=== PATIENT | female | born 1965 | race Caucasian/White ===

== ENCOUNTER → 2020-12-18 | Outpatient (CLI) | payer OTHER ==
[~2020-12-18] MED LIST: ALDACTONE25 MG PO; ATORVASTATIN CA20 MG PO; BASAGLAR K100 UNIT/1 SQ; CEFUROXIME250 MG PO; CHRONULAC20 GM/30 M PO; CLINDAMYCIN HC150 MG PO; COZAAR25 MG PO; ECOTRIN81 MG PO; FUROSEMIDE20 MG PO; KEFLEX CAP 500500 MG PO; LEVAQUIN500 MG PO; LEVOFLOXACIN500 MG PO; LOPRESSOR 25 MG25 MG PO; LOVENOX120 MG/0.8 SQ; LOVENOX30 MG/0.3 SQ; METFORMIN HCL500 M2 PO; OMNICEF 300 MG300 MG PO; PERCOCET 5-3251 EACH PO; PERCOCET 5/325 T1 EA PO; SULFAMETHOXAZO1 EACH PO; TESSALON PERLE100 MG PO; XARELTO 10 MG T10 MG PO; XARELTO10 MG PO; XARELTO20 MG PO; ZESTRIL2.5 MG PO
== END ==
LOC: KOH-I 09:39
DX: M14.671 Charcot's joint, right ankle and foot (principal); M14.672 Charcot's joint, left ankle and foot; M19.072 Primary osteoarthritis, left ankle and foot; M19.071 Primary osteoarthritis, right ankle and foot
CPT/HCPCS: 73610; 73630

== ENCOUNTER → 2021-02-19 | Outpatient (CLI) | payer OTHER | LOC: KOH-I 15:36 | DX: A52.16 Charcot's arthropathy (tabetic) (principal); M79.671 Pain in right foot; M79.672 Pain in left foot; M25.775 Osteophyte, left foot; M25.774 Osteophyte, right foot | CPT/HCPCS: 73630 ==

== ENCOUNTER 2021-02-20 19:26 | Inpatient (IN) | payer OTHER ==
[~2021-02-20] VITALS: Ht 162.6 cm; Wt 127.9 kg
[~2021-02-20 19:26] MED LIST changes: -ALDACTONE25 MG PO; -CHRONULAC20 GM/30 M PO; -CLINDAMYCIN HC150 MG PO; -COZAAR25 MG PO; -LEVOFLOXACIN500 MG PO; -LOVENOX120 MG/0.8 SQ; -LOVENOX30 MG/0.3 SQ; -PERCOCET 5-3251 EACH PO; -PERCOCET 5/325 T1 EA PO; -SULFAMETHOXAZO1 EACH PO
[2021-02-21] MEDS ORDERED: COZAAR25 MG PO (12:10)
[2021-02-21] MEDS ORDERED: ALDACTONE25 MG PO (12:11)
[2021-02-21 16:24] LABS: HEMOGLOBIN 12.4 gm/dl (12.3-15.3); RED BLOOD COUNT 4.03 M/UL (4.00-5.10); WHITE BLOOD COUNT 10.2 K/UL (4.5-11.0)
[2021-02-22 03:55] LABS: HEMOGLOBIN 12.4 gm/dl (12.3-15.3); RED BLOOD COUNT 3.99 M/UL (4.00-5.10)
[2021-02-22] MEDS ORDERED: SULFAMETHOXAZO1 EACH PO (08:59)
[2021-02-23 04:36] LABS: HEMOGLOBIN 11.8 gm/dl (12.3-15.3); RED BLOOD COUNT 3.86 M/UL (4.00-5.10); WHITE BLOOD COUNT 6.3 K/UL (4.5-11.0)
--- NOTE | 2021-02-23 14:30 | NUR ---
PATIENT RETURNED FROM SURGERY AT THIS TIME. ALERT AND VERBAL. NO ACUTE DISTRESS NOTED. VITAL SIGNS WITHIN NORMAL LIMITS. CLEAN, DRY, BULKY SURGICAL DRESSING IN PLACE TO RIGHT LOWER EXTREMITY. CALL [facility] [place]. SURGERY VITALS STARTED.
[2021-02-24 04:22] LABS: HEMOGLOBIN 10.7 gm/dl (12.3-15.3); RED BLOOD COUNT 3.52 M/UL (4.00-5.10)
[2021-02-25 03:38] LABS: HEMOGLOBIN 10.3 gm/dl (12.3-15.3); RED BLOOD COUNT 3.36 M/UL (4.00-5.10); WHITE BLOOD COUNT 10.6 K/UL (4.5-11.0)
[2021-02-26 04:53] LABS: HEMOGLOBIN 10.4 gm/dl (12.3-15.3); RED BLOOD COUNT 3.44 M/UL (4.00-5.10); WHITE BLOOD COUNT 9.7 K/UL (4.5-11.0)
[2021-02-27 02:48] LABS: HEMOGLOBIN 9.9 gm/dl (12.3-15.3); RED BLOOD COUNT 3.27 M/UL (4.00-5.10); WHITE BLOOD COUNT 9.2 K/UL (4.5-11.0)
[2021-02-28 03:08] LABS: HEMOGLOBIN 9.8 gm/dl (12.3-15.3); RED BLOOD COUNT 3.25 M/UL (4.00-5.10); WHITE BLOOD COUNT 7.8 K/UL (4.5-11.0)
[2021-03-01 08:55] LABS: HEMOGLOBIN 10.4 gm/dl (12.3-15.3); RED BLOOD COUNT 3.44 M/UL (4.00-5.10); WHITE BLOOD COUNT 8.1 K/UL (4.5-11.0)
[2021-03-03 11:04] LABS: HEMOGLOBIN 10.9 gm/dl (12.3-15.3); RED BLOOD COUNT 3.56 M/UL (4.00-5.10)
[2021-03-03] MEDS ORDERED: PERCOCET 5/325 T1 EA PO (11:22)
[2021-03-03] MEDS ORDERED: CLINDAMYCIN HC150 MG PO (11:22)
[2021-03-03] MEDS ORDERED: CHRONULAC20 GM/30 M PO (11:22)
[2021-03-03] MEDS ORDERED: LOVENOX30 MG/0.3 SQ (11:27)
[2021-03-03] MEDS ORDERED: LEVOFLOXACIN500 MG PO (13:00)
[2021-03-03] MEDS ORDERED: LOVENOX120 MG/0.8 SQ (14:06)
[2021-03-05] MEDS ORDERED: PERCOCET 5-3251 EACH PO ×2 (09:53→10:01)
== END 2021-03-03 19:26 | DRG 41 ==
LOC: M/S 02-21 11:09
PROVIDERS: Family Medicine; Internal Medicine Infectious Disease; Physician Assistant Medical; Podiatrist Foot & Ankle Surgery; Registered Nurse; ADMIT Internal Medicine
PROC: 0LNN0ZZ Release Right Lower Leg Tendon, Open Approach (ICD-10-PCS; 2021-02-23)
PROC: 0SGH04Z Fusion of Right Tarsal Joint with Internal Fixation Device, Open Approach (ICD-10-PCS; 2021-02-23)
PROC: 0SGF07Z Fusion of Right Ankle Joint with Autologous Tissue Substitute, Open Approach (ICD-10-PCS; 2021-02-23)
PROC: 0SGH07Z Fusion of Right Tarsal Joint with Autologous Tissue Substitute, Open Approach (ICD-10-PCS; 2021-02-23)
PROC: 0SGM04Z Fusion of Right Metatarsal-Phalangeal Joint with Internal Fixation Device, Open Approach (ICD-10-PCS; 2021-02-23)
PROC: 8E0ZXY6 Isolation (ICD-10-PCS; 2021-02-23)
PROC: 0HRMXK3 Replacement of Right Foot Skin with Nonautologous Tissue Substitute, Full Thickness, External Approach (ICD-10-PCS; 2021-02-23)
PROC: 0HRNXK3 Replacement of Left Foot Skin with Nonautologous Tissue Substitute, Full Thickness, External Approach (ICD-10-PCS; 2021-03-02)
PROC: 0JBR0ZZ Excision of Left Foot Subcutaneous Tissue and Fascia, Open Approach (ICD-10-PCS; principal; 2021-03-02 16:45)
DX: E11.610 Type 2 diabetes mellitus with diabetic neuropathic arthropathy (principal); E11.52 Type 2 diabetes mellitus with diabetic peripheral angiopathy with gangrene; D68.32 Hemorrhagic disorder due to extrinsic circulating anticoagulants; N17.9 Acute kidney failure, unspecified; N30.01 Acute cystitis with hematuria; L03.116 Cellulitis of left lower limb; L97.429 Non-pressure chronic ulcer of left heel and midfoot with unspecified severity; Z68.42 Body mass index [BMI] 45.0-49.9, adult; E11.22 Type 2 diabetes mellitus with diabetic chronic kidney disease; Z20.822 Contact with and (suspected) exposure to COVID-19; I12.9 Hypertensive chronic kidney disease with stage 1 through stage 4 chronic kidney disease, or unspecified chronic kidney disease; E66.01 Morbid (severe) obesity due to excess calories; T45.515A Adverse effect of anticoagulants, initial encounter; N18.30 Chronic kidney disease, stage 3 unspecified; B96.20 Unspecified Escherichia coli [E. coli] as the cause of diseases classified elsewhere; E11.621 Type 2 diabetes mellitus with foot ulcer; D63.1 Anemia in chronic kidney disease; Z86.711 Personal history of pulmonary embolism; Z86.718 Personal history of other venous thrombosis and embolism; Z79.01 Long term (current) use of anticoagulants; Z98.890 Other specified postprocedural states; Z79.82 Long term (current) use of aspirin; Z79.899 Other long term (current) drug therapy
CPT/HCPCS: 36415; 71045; 73610; 73630; 73700; 76000; 76857; 80048; 80053; 80202; 81001; 82962; 83036; 83735; 83880; 84443; 85025; 85027; 85610; 85730; 87070; 87086; 87205; 93005; 93926; 97110; 97116; 97161; 97530; 97530-GP-CQ; C1713; C1769; J0696; J1100; J1335; J1644; J1650; J2001; J2250; J2270; J2370; J2405; J2550; J2704; J2795; J3010; J3370; J7030; J7050; J7070; J7120; Q4133; U0002

== ENCOUNTER → 2021-04-03 | Outpatient (CLI) | payer OTHER ==
[~2021-04-03] MED LIST changes: +ALDACTONE25 MG PO; +CHRONULAC20 GM/30 M PO; +CLINDAMYCIN HC150 MG PO; +COZAAR25 MG PO; +LEVOFLOXACIN500 MG PO; +LOVENOX120 MG/0.8 SQ; +LOVENOX30 MG/0.3 SQ; +PERCOCET 5-3251 EACH PO; +PERCOCET 5/325 T1 EA PO; +SULFAMETHOXAZO1 EACH PO
== END ==
LOC: KOH-I 14:34
DX: M25.571 Pain in right ankle and joints of right foot (principal); S92.351D Displaced fracture of fifth metatarsal bone, right foot, subsequent encounter for fracture with routine healing
CPT/HCPCS: 73610; 73630

== ENCOUNTER → 2021-05-10 | Outpatient (CLI) | payer OTHER | LOC: KOH-I 09:57 | DX: M25.571 Pain in right ankle and joints of right foot (principal) | CPT/HCPCS: 73610; 73630 ==

== ENCOUNTER → 2021-05-24 | Outpatient (CLI) | payer OTHER | LOC: KOH-I 10:04 | DX: M79.671 Pain in right foot (principal) | CPT/HCPCS: 73610; 73630 ==

== ENCOUNTER → 2021-06-14 | Outpatient (CLI) | payer OTHER | LOC: KOH-I 08:54 | DX: M25.571 Pain in right ankle and joints of right foot (principal); M79.671 Pain in right foot | CPT/HCPCS: 73610; 73630 ==

== ENCOUNTER → 2021-07-05 | Outpatient (CLI) | payer OTHER | LOC: KOH-I 15:47 | DX: M25.571 Pain in right ankle and joints of right foot (principal); M79.671 Pain in right foot | CPT/HCPCS: 73610; 73630 ==

== ENCOUNTER → 2021-07-12 | Outpatient (CLI) | payer OTHER | LOC: LAB 16:15 | PROVIDERS: Internal Medicine Nephrology | DX: R80.9 Proteinuria, unspecified (principal) | CPT/HCPCS: 36415; 80048; 82043; 82570; 84156 ==

== ENCOUNTER → 2021-07-26 | Outpatient (CLI) | payer OTHER | LOC: KOH-I 15:52 | DX: M25.571 Pain in right ankle and joints of right foot (principal); M79.671 Pain in right foot | CPT/HCPCS: 73610; 73630 ==

== ENCOUNTER → 2021-08-23 | Outpatient (CLI) | payer OTHER | LOC: KOH-I 15:50 | DX: M25.571 Pain in right ankle and joints of right foot (principal); M79.671 Pain in right foot | CPT/HCPCS: 73610; 73630 ==

== ENCOUNTER → 2021-10-22 | Outpatient (CLI) | payer OTHER | LOC: NM 10-15 07:30 | DX: E11.621 Type 2 diabetes mellitus with foot ulcer (principal); L97.412 Non-pressure chronic ulcer of right heel and midfoot with fat layer exposed | CPT/HCPCS: 36415; 78800; 82565; A9569 ==

== ENCOUNTER → 2022-01-17 | Outpatient (CLI) | payer OTHER ==
[~2022-01-17] MED LIST changes: +ASPIRIN EC81 MG PO; -BASAGLAR K100 UNIT/1 SQ; +BENZONATATE200 MG PO; +CEFUROXIME500 MG PO; +CIPROFLOXACIN500 M1 PO; +JARDIANCE10 MG PO; +LANTUS SOL100 UNIT/1 SQ; +MEDROL4 MG PO; +NEURONTIN400 MG PO; +PROVENTIL HFA6.7 GM INH; +VITAMIN D21250 MCG PO
== END ==
LOC: KOH-I 15:55
DX: M79.671 Pain in right foot (principal); M25.571 Pain in right ankle and joints of right foot
CPT/HCPCS: 73610; 73630